=== PATIENT | male | born 1980 ===

== ENCOUNTER 2020-06-20 05:15 | Day surgery (SDC) | payer OTHER ==
[~2020-06-20 05:15] MED LIST: ZYRTEC10 M3 PO
== END 2020-06-20 10:35 | disposition home or self-care (01) ==
LOC: CIR.AMB 05:15
PROVIDERS: ATTEND Surgery
DX: D18.01 Hemangioma of skin and subcutaneous tissue (principal); Z20.822 Contact with and (suspected) exposure to COVID-19